=== PATIENT | female | born 1940 | race Caucasian/White ===

== ENCOUNTER 2017-05-09 15:20 | Emergency (ER) | payer MEDICARE, OTHER ==
[~2017-05-09] VITALS: Ht 170.2 cm; Wt 49.9 kg
[~2017-05-09 15:20] MED LIST: ALPR.5 PO; CIPR500 PO; EVISTA; FURO20 PO; HYDPAM25; LITH300C PO; LITH300ER PO; LITH450ER; LITH450ER PO; LORA1 PO; MEMA5TAB PO; MIRT15; MIRT30; NAPR500 PO; PHENA100 PO; QUET300 PO; TRILEPTAL; [UNRECOGNIZED DRUG - CODE] PO
== END 2017-05-09 16:50 | disposition home or self-care (01) ==
LOC: ER 15:20
DX: F03.90 Unspecified dementia, unspecified severity, without behavioral disturbance, psychotic disturbance, mood disturbance, and anxiety (principal); F31.9 Bipolar disorder, unspecified; Z88.8 Allergy status to other drugs, medicaments and biological substances; Z79.899 Other long term (current) drug therapy
CPT/HCPCS: 81000; 99283; P9612

== ENCOUNTER → 2017-05-31 | Outpatient (CLI) | payer MEDICARE, OTHER ==
[~2017-05-31] MED LIST changes: +PREG50 PO; +QUET100 PO
== END | disposition home or self-care (01) ==
LOC: LAB 10:45
DX: N39.0 Urinary tract infection, site not specified (principal)
CPT/HCPCS: 87086

== ENCOUNTER 2017-06-15 14:51 | Inpatient (IN) | payer MEDICARE, OTHER ==
[~2017-06-15] VITALS: Ht 165.1 cm; Wt 35.4 kg
[~2017-06-15 14:51] MED LIST changes: -PREG50 PO; -QUET100 PO
[2017-06-15] MEDS ORDERED: QUET100 PO (16:06)
[2017-06-15 16:24] LABS: BASOPHILS ABSOLUTE AUTO 0.02 K/mm3 (0.00-0.23); BASOPHILS PERCENT AUTO 0 % (0-2); EOSINOPHILS ABSOLUTE AUTO 0.04 K/mm3 (0.00-0.68); EOSINOPHILS PERCENT AUTO 1 % (0-6); Hemoglobin 13.7 g/dL (11.5-16.0); IMMATURE GRAN ABSOLUTE AUTO 0.01 K/mm3 (0.00-0.10); IMMATURE GRAN PERCENT AUTO 0 % (0-1); LYMPHOCYTES ABSOLUTE AUTO 1.31 K/mm3 (0.84-5.20); LYMPHOCYTES PERCENT AUTO 24 % (21-46); MONOCYTES ABSOLUTE AUTO 0.74 K/mm3 (0.16-1.47); MONOCYTES PERCENT AUTO 13 % (4-13); Mean Corpuscular HGB 29.1 pg (26.0-34.0); Mean Corpuscular HGB Conc 31.9 g/dL (31.5-36.5); Mean Corpuscular Volume 92 fL (80-100); Mean Platelet Volume 11.4 fL (9.1-12.4); NEUTROPHILS ABSOLUTE AUTO 3.45 K/mm3 (1.96-9.15); NEUTROPHILS PERCENT AUTO 62 % (41-73); Platelet Count 164 K/mm3 (150-400); RDW Coefficient Variation 14.7 % (11.7-14.2); White Blood Cell Count 5.57 K/mm3 (4.00-11.30)
[2017-06-15 16:36] LABS: Base Excess Venous 6.4 mmol/L; Bicarbonate Venous 28.3 mmol/L (24.0-30.0); PCO2 Venous 62.7 mmHg (38-42); PO2 Venous 104 mmHg (38-42); pH Blood Venous 7.32 (7.34-7.37)
[2017-06-15 16:44] LABS: Alanine Aminotransfer (ALT/SGP 32 U/L (12-78); Albumin, Blood 3.6 g/dL (3.4-5.0); Alk Phos 89 U/L (50-136); Anion Gap 8 mmol/L (6-16); Aspartate Aminotrans (AST/SGOT 25 U/L (12-37); Bilirubin, Total 0.3 mg/dL (0.1-1.0); Blood Urea Nitrogen 55 mg/dL (8-24); Bun/Creatinine Ratio 27.8 (12.0-20.0); CO2, Blood 31 mmol/L (21-32); Calcium, Blood 9.6 mg/dL (8.5-10.1); Chloride, Blood 103 mmol/L (98-108); Creatinine, Blood 1.98 mg/dL (0.40-1.00); Ethanol (Alcohol), Blood, Med <3 mg/dL; Globulin, Blood 3.7 g/dL (2.2-4.0); Glomerular Filtration Rate 26 (60-); Glucose, Blood 135 mg/dL (70-99); Potassium, Blood 4.7 mmol/L (3.5-5.5); Sodium, Blood 142 mmol/L (136-145); Total Protein, Blood 7.3 g/dL (6.4-8.2); Troponin I <0.015 ng/mL (0.000-0.040)
[2017-06-15 16:49] LABS: Source, Urine Voided
[2017-06-15 16:56] LABS: Bilirubin, Urine Neg (Neg); Blood, Urine 1+ (Neg); Glucose Qualitative, Urine Neg (Neg); Ketones, Urine 1+ (Neg); Leukocyte Esterase, Urine Neg (Neg); Nitrite, Urine Neg (Neg); Protein, Urine 1+ (Neg); Specific Gravity, Urine 1.015 (1.003-1.022); Urobilinogen, Urine NORM (Normal)
[2017-06-15 17:13] LABS: Appearance, Urine Clear (Clear); Color, Urine Yellow (P-Yellow); U Amphetamine Screen Not Detected; U Barbituate Screen Not Detected; U Benzodiazapine Screen Not Detected; U Buprenorphine Screen Not Detected; U Cannabinoids Screen Not Detected; U Cocaine Screen Not Detected; U Methadone Screen Not Detected; U Methamphetamine Screen Not Detected; U Opiates Screen Not Detected; U Oxycodone Screen Not Detected; U Phencyclidine Screen Not Detected; U Propoxyphene Screen Not Detected
[2017-06-15 17:15] LABS: Bacteria Few /hpf; Squamous Epithelial Cells Few /hpf (Few)
[2017-06-18 15:23] LABS: Bun/Creatinine Ratio 28.5 (12.0-20.0); Calcium, Blood 9.8 mg/dL (8.5-10.1); Creatinine, Blood 2.21 mg/dL (0.40-1.00); Potassium, Blood 5.1 mmol/L (3.5-5.5)
[2017-06-19 11:52] LABS: Bun/Creatinine Ratio 40.1 (12.0-20.0); Calcium, Blood 9.6 mg/dL (8.5-10.1); Creatinine, Blood 1.77 mg/dL (0.40-1.00); Potassium, Blood 4.8 mmol/L (3.5-5.5)
[2017-06-19 15:40] LABS: Bun/Creatinine Ratio 40.6 (12.0-20.0); Calcium, Blood 9.4 mg/dL (8.5-10.1); Creatinine, Blood 1.75 mg/dL (0.40-1.00)
[2017-06-19 19:24] LABS: Bun/Creatinine Ratio 40.2 (12.0-20.0); Calcium, Blood 9.2 mg/dL (8.5-10.1); Creatinine, Blood 1.69 mg/dL (0.40-1.00)
[2017-06-20 05:29] LABS: BASOPHILS ABSOLUTE AUTO 0.01 K/mm3 (0.00-0.23); BASOPHILS PERCENT AUTO 0 % (0-2); EOSINOPHILS ABSOLUTE AUTO 0.07 K/mm3 (0.00-0.68); EOSINOPHILS PERCENT AUTO 1 % (0-6); Hematocrit 38.6 % (33.0-51.0); Hemoglobin 11.7 g/dL (11.5-16.0); IMMATURE GRAN ABSOLUTE AUTO 0.02 K/mm3 (0.00-0.10); IMMATURE GRAN PERCENT AUTO 0 % (0-1); LYMPHOCYTES ABSOLUTE AUTO 1.02 K/mm3 (0.84-5.20); LYMPHOCYTES PERCENT AUTO 14 % (21-46); MONOCYTES ABSOLUTE AUTO 0.68 K/mm3 (0.16-1.47); MONOCYTES PERCENT AUTO 9 % (4-13); Mean Corpuscular HGB 29.5 pg (26.0-34.0); Mean Corpuscular HGB Conc 30.3 g/dL (31.5-36.5); Mean Platelet Volume 11.7 fL (9.1-12.4); NEUTROPHILS ABSOLUTE AUTO 5.67 K/mm3 (1.96-9.15); NEUTROPHILS PERCENT AUTO 76 % (41-73); Platelet Count 156 K/mm3 (150-400); RDW Standard Deviation 53.6 fL (35.1-46.3); Red Blood Cell Count 3.96 M/mm3 (3.80-5.20); White Blood Cell Count 7.47 K/mm3 (4.00-11.30)
[2017-06-20 05:33] LABS: Mean Corpuscular Volume 98 fL (80-100)
[2017-06-20 05:45] LABS: Bun/Creatinine Ratio 40.7 (12.0-20.0); Calcium, Blood 9.1 mg/dL (8.5-10.1); Creatinine, Blood 1.45 mg/dL (0.40-1.00); Potassium, Blood 4.2 mmol/L (3.5-5.5)
[2017-06-20 09:46] LABS: Bun/Creatinine Ratio 40.4 (12.0-20.0); Calcium, Blood 9.1 mg/dL (8.5-10.1); Creatinine, Blood 1.36 mg/dL (0.40-1.00); Potassium, Blood 4.2 mmol/L (3.5-5.5)
[2017-06-20 13:19] LABS: Bun/Creatinine Ratio 40.9 (12.0-20.0); Creatinine, Blood 1.27 mg/dL (0.40-1.00); Potassium, Blood 4.1 mmol/L (3.5-5.5)
[2017-06-20 17:45] LABS: Calcium, Blood 8.9 mg/dL (8.5-10.1); Creatinine, Blood 1.23 mg/dL (0.40-1.00); Potassium, Blood 4.5 mmol/L (3.5-5.5)
[2017-06-21 05:58] LABS: Bun/Creatinine Ratio 31.7 (12.0-20.0); Calcium, Blood 8.9 mg/dL (8.5-10.1); Creatinine, Blood 1.2 mg/dL (0.40-1.00); Potassium, Blood 4.1 mmol/L (3.5-5.5)
[2017-06-22 08:51] LABS: Bun/Creatinine Ratio 23.1 (12.0-20.0); Calcium, Blood 8.8 mg/dL (8.5-10.1); Creatinine, Blood 1.08 mg/dL (0.40-1.00); Potassium, Blood 3.7 mmol/L (3.5-5.5)
[2017-06-23] MEDS ORDERED: PREG50 PO (11:36)
== END 2017-06-23 14:45 | disposition home or self-care (01) | DRG 917 ==
LOC: ER 14:51 → MEDS 14:52 → ENPENDDIS 06-23 11:10 → MEDS 06-23 14:45
PROVIDERS: Emergency Medicine; Internal Medicine
DX: T43.201A Poisoning by unspecified antidepressants, accidental (unintentional), initial encounter (principal); G92 Toxic encephalopathy; R40.20 Unspecified coma; E43 Unspecified severe protein-calorie malnutrition; N17.9 Acute kidney failure, unspecified; E87.0 Hyperosmolality and hypernatremia; G30.9 Alzheimer's disease, unspecified; F02.80 Dementia in other diseases classified elsewhere, unspecified severity, without behavioral disturbance, psychotic disturbance, mood disturbance, and anxiety; E87.1 Hypo-osmolality and hyponatremia; Z68.1 Body mass index [BMI] 19.9 or less, adult; E86.0 Dehydration; N18.3 Chronic kidney disease, stage 3 (moderate); R62.7 Adult failure to thrive; F31.9 Bipolar disorder, unspecified; G89.4 Chronic pain syndrome; Z88.8 Allergy status to other drugs, medicaments and biological substances; Z79.899 Other long term (current) drug therapy
CPT/HCPCS: 36415; 70450; 71045; 80048; 80053; 81001; 82140; 82803; 84443; 84484; 85025; 93005; 93010; 97110; 97163; 97166; 97530; 97535; 99285; G0378; G0480; G8978; G8979; G8987; G8988; J7042; J7070; P9612

== ENCOUNTER 2018-11-25 12:29 | Inpatient (IN) | payer MEDICARE, OTHER ==
[~2018-11-25] VITALS: Ht 162.6 cm; Wt 45.4 kg
[~2018-11-25 12:29] MED LIST changes: +MEMA10 PO; +PREG50 PO; +QUETIAPINE FUMA50 MG PO
[2018-11-25 13:08] LABS: BASOPHILS ABSOLUTE AUTO 0.03 K/mm3 (0.00-0.23); BASOPHILS PERCENT AUTO 0 % (0-2); EOSINOPHILS ABSOLUTE AUTO 0.08 K/mm3 (0.00-0.68); EOSINOPHILS PERCENT AUTO 1 % (0-6); Hematocrit 37.5 % (33.0-51.0); IMMATURE GRAN ABSOLUTE AUTO 0.06 K/mm3 (0.00-0.10); IMMATURE GRAN PERCENT AUTO 1 % (0-1); LYMPHOCYTES ABSOLUTE AUTO 2.21 K/mm3 (0.84-5.20); LYMPHOCYTES PERCENT AUTO 21 % (21-46); MONOCYTES ABSOLUTE AUTO 0.75 K/mm3 (0.16-1.47); MONOCYTES PERCENT AUTO 7 % (4-13); Mean Corpuscular HGB 30.9 pg (26.0-34.0); Mean Corpuscular HGB Conc 29.3 g/dL (31.5-36.5); Mean Corpuscular Volume 105 fL (80-100); Mean Platelet Volume 11.1 fL (9.1-12.4); NEUTROPHILS ABSOLUTE AUTO 7.28 K/mm3 (1.96-9.15); NEUTROPHILS PERCENT AUTO 70 % (41-73); Platelet Count 184 K/mm3 (150-400); RDW Coefficient Variation 14.5 % (11.7-14.2); Red Blood Cell Count 3.56 M/mm3 (3.80-5.20); White Blood Cell Count 10.41 K/mm3 (4.00-11.30)
[2018-11-25 13:20] LABS: Magnesium, Blood 2.4 mg/dL (1.6-2.4); Troponin I <0.015 ng/mL (0.000-0.040)
[2018-11-25 13:22] LABS: International Normalized Ratio 1.03; Prothrombin Time Results 10.9 Sec (9.7-11.5)
[2018-11-25 13:25] LABS: Lithium <0.20 mmol/L (0.60-1.20)
[2018-11-25 13:26] LABS: Alanine Aminotransfer (ALT/SGP 88 U/L (12-78); Albumin, Blood 2.7 g/dL (3.4-5.0); Albumin/Globulin Ratio 0.7 (0.8-1.8); Alk Phos 150 U/L (50-136); Anion Gap 1 mmol/L (6-16); Aspartate Aminotrans (AST/SGOT 60 U/L (12-37); Bilirubin, Total 0.2 mg/dL (0.1-1.0); Blood Urea Nitrogen 65 mg/dL (8-24); Bun/Creatinine Ratio 39.2 (12.0-20.0); CO2, Blood 32 mmol/L (21-32); Calcium, Blood 10.8 mg/dL (8.5-10.1); Chloride, Blood 128 mmol/L (98-108); Creatinine, Blood 1.66 mg/dL (0.40-1.00); Globulin, Blood 3.9 g/dL (2.2-4.0); Glomerular Filtration Rate 32 (60-); Glucose, Blood 100 mg/dL (70-99); Potassium, Blood 4.7 mmol/L (3.5-5.5); Sodium, Blood 161 mmol/L (136-145); Total Protein, Blood 6.6 g/dL (6.4-8.2)
[2018-11-25 14:29] LABS: PCO2 Arterial 55.9 mmHg (35-45); PO2 Arterial 101 mmHg (80-100)
[2018-11-25 14:58] LABS: Source, Urine Catheter
[2018-11-25 15:02] LABS: Bilirubin, Urine Neg (Neg); Blood, Urine Neg (Neg); Glucose Qualitative, Urine Neg (Neg); Ketones, Urine Neg (Neg); Leukocyte Esterase, Urine Neg (Neg); Nitrite, Urine Neg (Neg); Protein, Urine 2+ (Neg); Specific Gravity, Urine 1.015 (1.003-1.022); Urobilinogen, Urine NORM (Normal)
[2018-11-25] MEDS ORDERED: REMERON15 MG PO (15:11)
[2018-11-25] MEDS ORDERED: CALCIUM 500 MG1 EACH PO (15:15)
[2018-11-25] MEDS ORDERED: MIRALAX17 GM PO (15:28)
[2018-11-25] MEDS ORDERED: ACET500 PO (15:28)
[2018-11-25] MEDS ORDERED: ACET325 PO (15:29)
[2018-11-25] MEDS ORDERED: Calmoseptine Oi71 GM TOP (15:30)
[2018-11-25] MEDS ORDERED: COMFORT PO (15:32)
[2018-11-25] MEDS ORDERED: BISA10S PR (15:33)
[2018-11-25] MEDS ORDERED: DOCU100 PO (15:34)
[2018-11-25] MEDS ORDERED: Milk Of Ma400 MG/5 M PO (15:35)
[2018-11-25] MEDS ORDERED: Anti-Diarrheal2 MG PO (15:35)
[2018-11-25] MEDS ORDERED: ENEMA BOTTLE1 EACH PR (15:36)
[2018-11-25] MEDS ORDERED: ONDA4 PO (15:37)
[2018-11-25] MEDS ORDERED: Triple Antibio1 EACH TOP (15:38)
[2018-11-25 16:26] LABS: U Amphetamine Screen Not Detected; U Barbituate Screen Not Detected; U Benzodiazapine Screen Not Detected; U Buprenorphine Screen Not Detected; U Cannabinoids Screen Not Detected; U Cocaine Screen Not Detected; U Methadone Screen Not Detected; U Methamphetamine Screen Not Detected; U Opiates Screen Not Detected; U Oxycodone Screen Not Detected; U Phencyclidine Screen Not Detected; U Propoxyphene Screen Not Detected
[2018-11-25 16:28] LABS: Appearance, Urine Clear (Clear); Color, Urine Pale Yellow (P-Yellow)
[2018-11-25 16:30] LABS: Bacteria Mod /hpf; Red Blood Cells, Urine 0-2 /hpf (0-2); Squamous Epithelial Cells Not Seen /hpf (Few)
[2018-11-25] MEDS ORDERED: QUET200 PO (18:19)
[2018-11-25] MEDS ORDERED: Seroquel50 MG PO (18:19)
--- NOTE | 2018-11-25 19:27 | NUR ---
SHIFT SUMMARY- PT NEW ADMIT THIS PM. PT HAS NOT WOKEN UP THIS SHIFT. SAM ED RN REPORTS PT HAS BEEN THIS WAY SINCE SHE CAME IN TO THE ED AND DR. MILTON IS AWARE. PT MOANS WITH EYES CLOSED TO STERNAL RUB. RESP E/U ON 2L O2 NC. TURNS Q2H. 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 NO OTHER SIGNIFICANT CHANGES THIS SHIFT.
--- NOTE | 2018-11-25 21:48 | NUR ---
DR OCASIO LEFT ORDERS TO DISCONTINUE IV D5W, SODIUM TO BE RECHECKED AT 0100 ON 11/26/18.
--- NOTE | 2018-11-25 22:27 | NUR ---
2000 PT NON RESPONSIVE
--- NOTE | 2018-11-26 04:53 | NUR ---
SHIFT SUMMARY: 78 Y/O FEMALE UNRESPONSIVE ALL SHIFT, SODIUM LEVEL AT 2100 WAS 161 (MD NOTIFIED) AND 158 AT 0100, IV D5W AT 150ML/HR INFUSING, TURNED Q2H BY STAFF AND FRESH ATTENDS DIAPERS APPLIED, NO PAIN OR NAUSEA NOTED, BED ALARM APPLIED, BED LOW POSITION, CALL LIGHT AT SIDE.
[2018-11-26 05:07] LABS: Albumin, Blood 2.6 g/dL (3.4-5.0); Albumin/Globulin Ratio 0.6 (0.8-1.8); Bilirubin, Total 0.3 mg/dL (0.1-1.0); Bun/Creatinine Ratio 35.7 (12.0-20.0); Calcium, Blood 9.5 mg/dL (8.5-10.1); Creatinine, Blood 1.26 mg/dL (0.40-1.00); Globulin, Blood 4.1 g/dL (2.2-4.0); Potassium, Blood 3.9 mmol/L (3.5-5.5); Total Protein, Blood 6.7 g/dL (6.4-8.2)
--- NOTE | 2018-11-26 10:51 | NUR ---
0845 WHEN NURSE WENT INTO CHECK ON PATIENT SHE FOUND HER TO BE AWAKE. HER EYES WERE OPEN AND SHE WAS ABLE TO MOUTH HER NAME WHEN NURSE ASKED. FLUIDS WERE GIVEN AND PATIENT WAS ABLE TO GIVE HER NAME AGAIN AND RESPONED YES WHEN ASKED IF SHE WAS HUNGRY. APPLE SAUCE AND THICKENED WATER GIVEN WHICH SHE TOLERATED WELL. PATIENT WAS THEN GIVEN YOGURT. THIS NURSE ASKED IF SHE LIKED BLUEBERRY YOGURT WHICH SHE SAID YES. WHILE FEEDING THE PATIENT THIS NURSE AGAIN ASKED PATIENT HER NAME TO WHICH SHE RESPONED "OMI" WHEN ASKED WHERE SHE WAS SHE RESPONDED WITH "BLUEBERRY". THIS NURSE TOLD HER SHE WAS IN THE HOSPITAL TO WHICH THERE WAS NO RESPONCE. PATIENT COULD NOT ANSWER ANY OTHER QUESTIONS BUT TOOK THE FOOD WITHOUT INCIDENCE. PATIENT SHORTLY AFTER FELL BACK TO SLEEP. IV FLUIDS CONTINUE TO RUN.
--- NOTE | 2018-11-26 17:29 | NUR ---
PATIENT HAS SLEPT MOST OF SHIFT. DID WAKE ENOUGH TO FEED. SHE HAS HAD NO COMPLAINTS OF PAIN. RED RASH HAS DEVELOPED, DOCTOR NOTIFIED. SHE APPEARS CONFUSED WHEN ASKED QUESTIONS BUT DOES KNOW HER NAME. MENTATION HAS IMPROVED BUT ONLY SLIGHTLY. CALL LIGHT WITHIN REACH.
[2018-11-27 05:18] LABS: Bun/Creatinine Ratio 29.1 (12.0-20.0); Calcium, Blood 9.5 mg/dL (8.5-10.1); Creatinine, Blood 1.03 mg/dL (0.40-1.00); Potassium, Blood 3.5 mmol/L (3.5-5.5)
--- NOTE | 2018-11-27 06:49 | NUR ---
11/27/18 0545 Vitals stable except for slight fever this AM. REPOSITIONED Q 2 HOURS WITH 2 STAFF. PT VERY STIFF IN EXTREMITIES. UNEVENTFUL NIGHT. ENCOURAGED ORAL INTAKE BUT RESISTANT LAST NIGHT.
--- NOTE | 2018-11-27 18:02 | NUR ---
NO ACUTE CHANGES THIS SHIFT. MENTATION IMPROVING AND PATIENT AT THIS TIME IS FEEDING HER SELF. REMAINS BEDBOUND WHICH IS BASELINE PER HER NURSE AT [facility]. NA+ LEVELS RETURNING TO NORMAL. NO COMPLAINTS OF PAIN, NVD, OR SOB THIS SHIFT. THE IS PLEASANTLY CONFUSED .
--- NOTE | 2018-11-27 21:24 | NUR ---
11/27/182104 DRY HEAVING AFTER TAKING PM MEDS. SEE MAR FOR MEDS GIVEN.
[2018-11-28 05:18] LABS: Calcium, Blood 9.7 mg/dL (8.5-10.1); Creatinine, Blood 0.96 mg/dL (0.40-1.00); Potassium, Blood 3.5 mmol/L (3.5-5.5)
--- NOTE | 2018-11-28 07:27 | NUR ---
11/28/18 0620 CONTINUES TO BE CONFUSED WITH OCC. NON-SENSIBLE STATEMENTS. VITALS STABLE. DENIES ANY PAIN. TURNED Q 2 HOURS. INCONTINENT OF URINE SEVERAL TIMES THIS SHIFT.
--- NOTE | 2018-11-28 11:27 | NUR ---
Clinical Visit: Asked by doc to revisit pt's POLST form with her. Pt is very drowsy and not waking up enough to have a conversation. ECONOMIC CONSULTANT reports that she has been very lethargic and not eating. She is pocketing food. Call placed to [facility]ith[place] pt'steve STEARNS. He is unwilling to change her POLST form, since she signed it herself and those were her wishes when she was sound of mind. He inquires how she is, update given per request. Advised that she is being discharged back to facility today. Confirmed wish for CPR compressions, IV fluids, antibiotics, non-invasive airway support and no intubation. No other concerns at this time, document remains unchanged from her 2016 signature. Will remain available. Pt does not appear to be in pain, no s/s of anxiety or shortness of breath. She appears very fragile. Hospice would be appropriate at this time.
--- NOTE | 2018-11-28 18:00 | NUR ---
pt discharged PT WAS DC'D TO [facility] WHERE SHE LIVES, THE PT WAS ALERT X2 AT THE TIME OF DC, JOSE AT [facility] WAS CALLED AND ORDERS WERE FAXED REQUESTED BY CARE MANAGMENT, THE PT APPEARED TO BE BREATHING EASILY ON RA, THE PT AT VERY LITTLE T/O THE DAY, THE PT WAS TRANSFERED VIA STRETCHER ACCOMPANIED BY [facility], EARLIER THIS AM THE PTS IV INFILTRATED CAUSING SWELLING IN HER LEFT ARM, WEEKEND RECEPTIONIST MARY WAS NOTIFIED, AND JOSE AT [facility] WAS NOTIFIED, LEFT ARM WAS ELEVATED
== END 2018-11-28 17:40 | disposition home or self-care (01) | DRG 640 ==
LOC: ER 12:29 → MEDS 15:12
PROVIDERS: Emergency Medicine; ADMIT Internal Medicine
DX: E87.0 Hyperosmolality and hypernatremia (principal); G92 Toxic encephalopathy; N17.9 Acute kidney failure, unspecified; E86.0 Dehydration; F31.9 Bipolar disorder, unspecified; F03.90 Unspecified dementia, unspecified severity, without behavioral disturbance, psychotic disturbance, mood disturbance, and anxiety; R94.5 Abnormal results of liver function studies; M25.559 Pain in unspecified hip; G89.29 Other chronic pain; Z86.73 Personal history of transient ischemic attack (TIA), and cerebral infarction without residual deficits; Z88.5 Allergy status to narcotic agent; Z79.899 Other long term (current) drug therapy
CPT/HCPCS: 36415; 36600; 51701; 70450; 71045; 80048; 80053; 80178; 81001; 82803; 83605; 83735; 83880; 84145; 84295; 84484; 85025; 85610; 87040; 93005; 93010; 96361-59; 96365-59; 96367-59; 99285-25; A9270; J0696; J1650; J2405; J3370; J7030; J7070; J7120

== ENCOUNTER 2019-02-22 16:07 | Emergency (ER) | payer MEDICARE, OTHER ==
[~2019-02-22] VITALS: Ht 154.9 cm; Wt 40.8 kg
[~2019-02-22 16:07] MED LIST changes: +ACET325 PO; +ACET500 PO; +Anti-Diarrheal2 MG PO; +BISA10S PR; +CALCIUM 500 MG1 EACH PO; +COMFORT PO; +Calmoseptine Oi71 GM TOP; +DOCU100 PO; +ENEMA BOTTLE1 EACH PR; +MIRALAX17 GM PO; +Milk Of Ma400 MG/5 M PO; +ONDA4 PO; +QUET200 PO; +REMERON15 MG PO; +Seroquel50 MG PO; +Triple Antibio1 EACH TOP
[2019-02-22] MEDS ORDERED: Augmentin 875-1 EACH PO (16:52)
== END 2019-02-22 19:04 | disposition home or self-care (01) ==
LOC: ER 16:07
DX: R05 Cough (principal); F03.90 Unspecified dementia, unspecified severity, without behavioral disturbance, psychotic disturbance, mood disturbance, and anxiety; F31.9 Bipolar disorder, unspecified; M41.9 Scoliosis, unspecified
CPT/HCPCS: 71046; 99283-25

== ENCOUNTER 2019-02-26 11:27 | Inpatient (IN) | payer MEDICARE, OTHER ==
[~2019-02-26] VITALS: Ht 170.2 cm; Wt 45.4 kg
[~2019-02-26 11:27] MED LIST changes: +Augmentin 875-1 EACH PO
[2019-02-26] MEDS ORDERED: Haldol5 MG/1 ML PO (11:48)
[2019-02-26 12:28] LABS: BASOPHILS ABSOLUTE AUTO 0.05 K/mm3 (0.00-0.23); BASOPHILS PERCENT AUTO 1 % (0-2); EOSINOPHILS ABSOLUTE AUTO 0.08 K/mm3 (0.00-0.68); EOSINOPHILS PERCENT AUTO 1 % (0-6); Hemoglobin 11.1 g/dL (11.5-16.0); IMMATURE GRAN ABSOLUTE AUTO 0.08 K/mm3 (0.00-0.10); IMMATURE GRAN PERCENT AUTO 1 % (0-1); LYMPHOCYTES ABSOLUTE AUTO 1.48 K/mm3 (0.84-5.20); LYMPHOCYTES PERCENT AUTO 15 % (21-46); MONOCYTES ABSOLUTE AUTO 0.76 K/mm3 (0.16-1.47); MONOCYTES PERCENT AUTO 8 % (4-13); Mean Corpuscular HGB 28.7 pg (26.0-34.0); Mean Corpuscular HGB Conc 28.5 g/dL (31.5-36.5); Mean Corpuscular Volume 101 fL (80-100); Mean Platelet Volume 10.2 fL (9.1-12.4); NEUTROPHILS ABSOLUTE AUTO 7.15 K/mm3 (1.96-9.15); NEUTROPHILS PERCENT AUTO 75 % (41-73); Platelet Count 320 K/mm3 (150-400); RDW Coefficient Variation 13.2 % (11.7-14.2); RDW Standard Deviation 48.8 fL (35.1-46.3); Red Blood Cell Count 3.87 M/mm3 (3.80-5.20)
[2019-02-26 12:48] LABS: Troponin I <0.015 ng/mL (0.000-0.040)
[2019-02-26 13:20] LABS: Alanine Aminotransfer (ALT/SGP 31 U/L (12-78); Albumin/Globulin Ratio 0.4 (0.8-1.8); Alk Phos 137 U/L (50-136); Aspartate Aminotrans (AST/SGOT 25 U/L (12-37); Bilirubin, Total 0.2 mg/dL (0.1-1.0); Blood Urea Nitrogen 64 mg/dL (8-24); CO2, Blood 28 mmol/L (21-32); Calcium, Blood 10.4 mg/dL (8.5-10.1); Chloride, Blood 136 mmol/L (98-108); Creatinine, Blood 1.88 mg/dL (0.40-1.00); Globulin, Blood 5.2 g/dL (2.2-4.0); Glomerular Filtration Rate 27 (60-); Glucose, Blood 105 mg/dL (70-99); Potassium, Blood 4.2 mmol/L (3.5-5.5); Total Protein, Blood 7.2 g/dL (6.4-8.2)
[2019-02-26 13:27] LABS: Source, Urine Catheter
[2019-02-26 13:29] LABS: Anion Gap 3 mmol/L (6-16); Sodium, Blood 167 mmol/L (136-145)
[2019-02-26 13:33] LABS: Bilirubin, Urine Neg (Neg); Blood, Urine 2+ (Neg); Glucose Qualitative, Urine Neg (Neg); Ketones, Urine Neg (Neg); Leukocyte Esterase, Urine Neg (Neg); Nitrite, Urine Neg (Neg); Protein, Urine 3+ (Neg); Urobilinogen, Urine NORM (Normal)
[2019-02-26 13:40] LABS: Appearance, Urine Hazy (Clear); Color, Urine Yellow (P-Yellow)
[2019-02-26 13:41] LABS: Amorphous Light (0-Heavy); Bacteria Few /hpf; Mucus Light (0-Heavy); Red Blood Cells, Urine 0-2 /hpf (0-2); Squamous Epithelial Cells Rare /hpf (Few); White Blood Cells, Urine 0-2 /hpf (0-5)
[2019-02-26] MEDS ORDERED: MIRALAX17 GM PO (15:09)
[2019-02-26] MEDS ORDERED: Haloperidol2 MG/1 ML PO (15:10)
[2019-02-26] MEDS ORDERED: MOISTURE BARRI113 GM TOP (15:13)
--- NOTE | 2019-02-26 19:19 | NUR ---
SHIFT SUMMARY- PT ARRIVED TO UNIT VIA BED. PT SLEPT FOR THE DURATION OF THIS SHIFT. PT WAS DIFFICULT TO AROUSE.
--- NOTE | 2019-02-26 20:41 | NUR ---
CRITICAL LABS: CALL WAS RECIEVED ON CRITICAL NA OF 165. DR MILTON IS NOTIFIED AND ORDERS TO STOP NS. START DSW @ 100ML/HR, RECHECK NA IN 4 HOURS.
--- NOTE | 2019-02-27 01:22 | NUR ---
CRITICAL LAB: RESULT OF CRITICAL NA+ CALLED TO DR LANIER. ORDERS OBTAINED TO CONTINUE D5W @ 100ML/HR AND CONSULT DR PEMBERTON.
--- NOTE | 2019-02-27 01:24 | NUR ---
CONSULT: CONSULT WAS CALLED TO DR PEMBERTON, ORDERS OBTAINED TO START ARENESP EVERY OTHER WEEK,SQ. DRAW A MAG, RENAL PANEL AND HEMATOCRIT IN THE AM AND A RENAL US IN AM.
[2019-02-27 04:07] LABS: BASOPHILS ABSOLUTE AUTO 0.04 K/mm3 (0.00-0.23); BASOPHILS PERCENT AUTO 1 % (0-2); EOSINOPHILS ABSOLUTE AUTO 0.31 K/mm3 (0.00-0.68); EOSINOPHILS PERCENT AUTO 4 % (0-6); Hematocrit 35.2 % (33.0-51.0); Hemoglobin 9.8 g/dL (11.5-16.0); IMMATURE GRAN ABSOLUTE AUTO 0.05 K/mm3 (0.00-0.10); IMMATURE GRAN PERCENT AUTO 1 % (0-1); LYMPHOCYTES ABSOLUTE AUTO 1.02 K/mm3 (0.84-5.20); LYMPHOCYTES PERCENT AUTO 14 % (21-46); MONOCYTES ABSOLUTE AUTO 0.63 K/mm3 (0.16-1.47); MONOCYTES PERCENT AUTO 9 % (4-13); Mean Corpuscular HGB 28.2 pg (26.0-34.0); Mean Corpuscular HGB Conc 27.8 g/dL (31.5-36.5); Mean Corpuscular Volume 101 fL (80-100); Mean Platelet Volume 10.1 fL (9.1-12.4); NEUTROPHILS ABSOLUTE AUTO 5.26 K/mm3 (1.96-9.15); NEUTROPHILS PERCENT AUTO 72 % (41-73); Platelet Count 258 K/mm3 (150-400); RDW Coefficient Variation 13.2 % (11.7-14.2); RDW Standard Deviation 49.7 fL (35.1-46.3); Red Blood Cell Count 3.47 M/mm3 (3.80-5.20); White Blood Cell Count 7.31 K/mm3 (4.00-11.30)
[2019-02-27 04:32] LABS: Magnesium, Blood 2.4 mg/dL (1.6-2.4)
[2019-02-27 04:34] LABS: Alanine Aminotransfer (ALT/SGP 23 U/L (12-78); Albumin, Blood 1.6 g/dL (3.4-5.0); Albumin/Globulin Ratio 0.4 (0.8-1.8); Alk Phos 112 U/L (50-136); Anion Gap 6 mmol/L (6-16); Aspartate Aminotrans (AST/SGOT 15 U/L (12-37); Bilirubin, Total 0.1 mg/dL (0.1-1.0); Blood Urea Nitrogen 55 mg/dL (8-24); Bun/Creatinine Ratio 35.7 (12.0-20.0); CO2, Blood 24 mmol/L (21-32); Calcium, Blood 9.2 mg/dL (8.5-10.1); Chloride, Blood 134 mmol/L (98-108); Creatinine, Blood 1.54 mg/dL (0.40-1.00); Globulin, Blood 4.3 g/dL (2.2-4.0); Glomerular Filtration Rate 35 (60-); Glucose, Blood 128 mg/dL (70-99); Phosphorus, Blood 3.2 mg/dL (2.5-4.9); Potassium, Blood 3.8 mmol/L (3.5-5.5); Sodium, Blood 164 mmol/L (136-145); Total Protein, Blood 5.9 g/dL (6.4-8.2)
--- NOTE | 2019-02-27 04:46 | NUR ---
CRITICAL LAB: NA+ IS 164, DR PEMBERTON IS UPDATED, NO NEW ORDERS AT THIS TIME.
--- NOTE | 2019-02-27 14:57 | NUR ---
INITIAL PAL CARE VISIT: CASE CONFERENCED WITH RN PRIOR TO MY VISIT. PT EXPRESSED TO RN THAT "SHE WAS AT THE END OF HER LIFE". PT IS 78 YEARS OLD, RESIDES AT [facility] AND WAS ADMITTED DUE TO CHANGES IN HER MENTATION, LOC AND INCREASED WEAKNESS. SHE HAD BEEN TREATED FOR A RESPIRATORY INFECTION AN OUTPT IN THE PAST WEEK, WITH NO RESPONSE AND WORSENING LEADING UP TO ADMISSION. ON ARRIVAL TO ER PT WAS FOUND TO BE SEVERLY DEHYDRATED, HYPERNATREMIC, WITH RLL PNEUMONIA, ACUTE ON CHRONIC STAGE THREE KIDNEY FAILURE, EXTREME CACHEXIA, WEAKNES AND DIMINISHED LOC. PT IS MORE ALERT AND ORIENTED AFTER TX FOR HYPERNATREMIA AND DEHYDRATION. SHE HAS A HX OF DEMENTIA, ANOREXIA AND BIPOLAR DISORDER. SHE IS ABLE TO SPEAK WITH ME, SMILES AT ME WHEN TALKING BUT SHE IS PROFOUNDLY WEAK WITH NO MUSCLE MASS, MUSCLE WASTING, NO ATTEMPT OR ABILITY TO USE HER ARMS AND LEGS FOR ASSIST WITH BED MOBILITY. SHE REQUIRES TWO PERSON ASSIST FOR TURNING IN BED AND REPOSITIONING. SHE HAS A FLAT AFFECT FOR THE MOST PART WITH AN OCCAISIONAL FROWN OR SMILE. SHE IS SLOW TO RESPOND TO ANY STATEMENT OR QUESTIONS. WE DISCUSSED HER WISHES AND SHE STATED SHE LIKED BEING IN THE HOSPITAL. SHE REPEATED TO ME THAT SHE FELT SHE WAS DYING AND WAS READY FOR THAT. SHE INDICATED SHE THOUGHT SHE HAD COME TO THE HOSPITAL TO . OMI HAS BEEN BEDBOUND WITH CONTRATURES OF HER FEET FOR A LONG TIME. IN SPEAKING WITH [facility]'S NURSE, JOSE, SHE CONFIRMS THAT PT'S PREVIOUS POA FOR HEALTHCARE HAS RESIGNED FROM THAT DUTY. HE IS NOT A FAMILY MEMBER AND DOES NOT LIVE LOCALLY AND WAS NOT COMFORTABLE MAKING "LIFE AND " DECISIONS. JOSE STATES THE WAYNE LISTED HER DAUGHTER IS NEWLY CONNECTED TO OMI AND ALSO EXPRESSED THAT SHE IS NOT COMFORTABLE BEING A SURROGATE DECISION MAKER FOR OMI. OMI IS ABLE TO TELL ME THAT SHE IS IN THE HOSPITAL, IN [place]. PT DENIES PAIN. SHE DOES APPEAR SL ANXIOUS DURING OUR CONVERSATION BUT IS NOT AGITATED OR IN DISTRESS. SHE IS PALE, EXTREMELY FRAIL APPEARING AND APPEARS TO HAVE SEVERE MUSCLE WASTING. IN SPEAKING WITH HER ABOUT LIFE SAVING INTERVENTIONS SHE VACILATED BETWEEN SAYING SHE WANTED CPR, THEN DECLINED CPR AND AT THE END OF OUR CONVERSATION STATED SHE WOULD LIKE A HOSPICE NURSE TO VISIT HER AT [facility] TO MANAGE HER SYMPTOMS. I CONFIRMED WITH HER THAT SHE WOULD NOT RETURN TO THE HOSPITAL ON HOSPICE & WOULD REMAIN AT [facility] TO RECEIVE CARE. I RESTATED THIS IN DIFFERENT WAYS AND SHE CONTINUED TO SAY SHE WOULD LIKE HOSPICE AND TO RETURN TO [facility] IF SHE IS NOT GOING TO STAY IN THE HOSPITAL UNTIL THE END OF HER LIFE. PT IS VERY CHILD LIKE BUT I BELIEVE SHE UNDERSTANDS THE GRAVE CONDITION SHE IS IN AT THIS TIME. REPORT GIVEN TO RN, , ADJUNCT PSYCHOLOGY PROFESSOR, AND [facility]. [facility] REQUESTED, PER [facility] RN. [facility] WILL SCREEN PT FOR MEETING HOSPICE CRITERIA AND LET US KNOW RESULTS OF SCREENING. [facility] WILL UPDATE AP[facility] ON CURRENT STATUS. [facility] RNJOSE, STATES THEY CAN RECEIVE PT BACK TO THEIR FACILITY TOMORROW IF PT RELEASED. JOSE WOULD LIKE CLEAR DOCUMENTATION FROM THAT PT MEETS HOSPICE CRITERIA WELL LEATHER SORTER AT HOSPICE AGENCY TO REVIEW BECAUSE THERE IS NO SURROGATE DECISION MAKER OR HC POA FOR PT. PT MAY BE UNABLE TO SIGN A CONSENT FOR HOSPICE DUE TO HER PROFOUND WEAKNESS AND FADING MENTATION. PALLIATIVE CARE TO FOLLOW WITH HOSPICE AND CM.
--- NOTE | 2019-02-27 18:19 | NUR ---
PT. SLEEPING AT THIS TIME. PT. HAS SLEPT ALL DAY AND ONLY OPENS EYES WHEN SPOKEN TO. DOES NOT APPEAR TO BE IN PAIN. MEDS AND FOOD NOT GIVEN DUE TO PT'S LETHARGY. SODIUM LEVEL HAS COME DOWN TO 5.5 AND DEXTROSE DECREASED TO 150 ML/HR. NO S/S OF DISTRESS. GEORGE CATHETER DRAINING CLEAR YELLOW URINE. POSSIBLE DISCHARGE BACK TO [facility] ON HOSPICE TOMORROW.
--- NOTE | 2019-02-28 04:22 | NUR ---
IV REMOVED FROM LEFT FOREARM DUE TO INFILTRATION. IV REMOVED FROM RIGHT FOREARM DUE TO LEAKING. NEW 20 GAGUE IV PLACED IN RIGHT FOREARM AND IS INFUSING.
--- NOTE | 2019-02-28 05:16 | NUR ---
SHIFT SUMMARY PATIENT STAYED IN BED ALL SHIFT. HAS BEEN PLEASANT AND COOPORATIVE BUT CONFUSED AND SPEAKS TO PEOPLE THAT ARE NOT PRESENT. IV IN RIGHT FOREARM IS PATENT AND INFUSING. TELEMETRY READS SINUS RHYTHM AT 80. PATIENT HAS BEEN RESTING MOST OF THE NIGHT. BED IN LOWEST POSITION WITH WHEELS LOCKED. CALL LIGHT WITHIN REACH. REPORT GIVEN TO ONCOMING RN.
[2019-02-28 07:00] LABS: Albumin, Blood 1.5 g/dL (3.4-5.0); Anion Gap 7 mmol/L (6-16); Blood Urea Nitrogen 33 mg/dL (8-24); Bun/Creatinine Ratio 24.8 (12.0-20.0); CO2, Blood 20 mmol/L (21-32); Calcium, Blood 8.3 mg/dL (8.5-10.1); Chloride, Blood 121 mmol/L (98-108); Creatinine, Blood 1.33 mg/dL (0.40-1.00); Glomerular Filtration Rate 41 (60-); Glucose, Blood 127 mg/dL (70-99); Phosphorus, Blood 2.2 mg/dL (2.5-4.9); Potassium, Blood 3.1 mmol/L (3.5-5.5); Sodium, Blood 148 mmol/L (136-145)
--- NOTE | 2019-02-28 16:33 | NUR ---
SHIFT SUMMARY PT RESTING QUIETLY AT START OF SHIFT, VERY LETHARGIC THIS AM. PT MORE AWAKE TIME WENT ON THRU OUT THE DAY. CONFUSED, BUT TALKATIVE. PT FROM [facility] WITH HYPERNATREMIA AND AMS. NA+ LEVELS MUCH IMPROVED SINCE ADMISSION. PT IS BED BOUND WITH HX OF DEMENTIA. INCONTINENT OF BOWELS WITH SEVERAL SOFT STOOLS TODAY. SM AMT OF REDNESS TO COCCYX WITH SM SCAB ON BUTTOCKS. GEORGE CATH IN PLACE WELL. PT SENT BACK TO [facility] ON HOSPICE. REPORT CALLED TO JOSE CARLSON. SR ON TELE. TRANSPORT HERE FOR P/U AT 1600.
--- NOTE | 2019-02-28 17:20 | NUR ---
Spiritual Care inital note: Mrs. Saldana was alone in room when I visited. She was non-responsive to voice or touch. She appeared comfortable and well cared-for by nursing. I sat at bedside and stroked her forehead. Per chart, she is Muslim. Audible prayer for a peaceful transition provided.
--- NOTE | 2019-03-01 09:55 | NUR ---
Palliative Care visit: Pt in bed after personal care and bath had just been received from [facility]. Pt appears sl anxious but denies pain. She is groomed and appears comfortable in conversation. She smiles at me and thanks me for my visit. She is glad to be heading home to [facility] today. She cont. to appear profoundly weak, cachechtic with overall muscle wasting noted. Oral care provided. Pt has been NPO for the most part but receiving IV fluids t/o this admission. She has a Song with lt straw colored urine in drainage bag. She is scheduled to leave for [facility] via gurney transport momentarily.
== END 2019-02-28 16:17 | disposition hospice, home (50) | DRG 640 ==
LOC: ER 11:27 → MEDS 16:22
PROVIDERS: Emergency Medicine; Internal Medicine Nephrology; ADMIT Internal Medicine
DX: E87.0 Hyperosmolality and hypernatremia (principal); J18.9 Pneumonia, unspecified organism; N17.9 Acute kidney failure, unspecified; R64 Cachexia; N18.4 Chronic kidney disease, stage 4 (severe); Z68.1 Body mass index [BMI] 19.9 or less, adult; E44.0 Moderate protein-calorie malnutrition; E86.0 Dehydration; F31.9 Bipolar disorder, unspecified; F03.90 Unspecified dementia, unspecified severity, without behavioral disturbance, psychotic disturbance, mood disturbance, and anxiety; R62.7 Adult failure to thrive; Z66 Do not resuscitate; Z86.73 Personal history of transient ischemic attack (TIA), and cerebral infarction without residual deficits; Z51.5 Encounter for palliative care; E86.9 Volume depletion, unspecified; E88.09 Other disorders of plasma-protein metabolism, not elsewhere classified; D64.9 Anemia, unspecified
CPT/HCPCS: 36415; 51702; 71045; 76770; 80053; 80069; 81001; 83605; 83735; 84100; 84295; 84484; 85018; 85025; 87040; 93005; 93010; 96361; 96365; 96368; 96375; 99285-25; J1644; J1956; J2543; J3480; J7030; J7060; J7070